=== PATIENT | female | born 1945 | race Caucasian/White ===

== ENCOUNTER 2017-11-24 14:34 | Emergency (ER) | payer MEDICARE ==
[2017-11-24] MEDS: ACETAMINOPHEN 500 MG TABLET PO (15:35)
== END 2017-11-24 18:02 | disposition home or self-care (01) ==
LOC: ER 14:34
DX: S13.9XXA Sprain of joints and ligaments of unspecified parts of neck, initial encounter (principal); S40.011A Contusion of right shoulder, initial encounter; S00.93XA Contusion of unspecified part of head, initial encounter; J44.9 Chronic obstructive pulmonary disease, unspecified; G89.29 Other chronic pain; W18.39XA Other fall on same level, initial encounter; Y93.89 Activity, other specified; Y99.8 Other external cause status; Y92.89 Other specified places as the place of occurrence of the external cause
CPT/HCPCS: 70450; 72125; 73030; 99284-25